=== PATIENT | female | born 1990 | race Caucasian/White ===

== ENCOUNTER 2017-11-24 10:42 | Emergency (ER) | payer BC | END 2017-11-24 16:24 | disposition left against medical advice (07) | LOC: FTE 10:42 | DX: O26.892 Other specified pregnancy related conditions, second trimester (principal); R10.9 Unspecified abdominal pain; Z3A.24 24 weeks gestation of pregnancy | CPT/HCPCS: 99282 ==

== ENCOUNTER 2017-11-24 11:23 | Outpatient (CLI) | payer BC | END 2017-11-24 12:15 | disposition left against medical advice (07) | LOC: OBT 11:23 → L-D 11:23 → OBT 12:15 | DX: O26.899 Other specified pregnancy related conditions, unspecified trimester (principal); M54.5 Low back pain; Z3A.00 Weeks of gestation of pregnancy not specified ==

== ENCOUNTER 2018-02-21 08:40 | Outpatient (CLI) | payer OTHER, BC | END 2018-02-21 10:00 | disposition home or self-care (01) | LOC: OBT 08:40 → L-D 08:40 → OBT 10:00 | DX: O24.419 Gestational diabetes mellitus in pregnancy, unspecified control (principal); O26.893 Other specified pregnancy related conditions, third trimester; M54.9 Dorsalgia, unspecified; Z3A.37 37 weeks gestation of pregnancy | CPT/HCPCS: 76815; 76818 ==

== ENCOUNTER 2018-03-03 10:09 | Outpatient (CLI) | payer OTHER | END 2018-03-03 12:09 | disposition home or self-care (01) | LOC: OBT 10:09 → L-D 10:09 → OBT 12:09 | DX: O24.410 Gestational diabetes mellitus in pregnancy, diet controlled (principal); Z3A.38 38 weeks gestation of pregnancy | CPT/HCPCS: 76818 ==

== ENCOUNTER 2018-03-07 14:13 | Outpatient (CLI) | payer OTHER | END 2018-03-07 15:10 | disposition home or self-care (01) | LOC: OBT 14:13 → L-D 14:15 → OBT 15:10 | DX: O24.410 Gestational diabetes mellitus in pregnancy, diet controlled (principal); Z3A.39 39 weeks gestation of pregnancy | CPT/HCPCS: 76818; 82962 ==

== ENCOUNTER 2018-03-08 15:51 | Outpatient (CLI) | payer OTHER ==
[2018-03-08] MEDS ORDERED: LIDOCAINE 1% (MPF) 30 ML INJ (16:58)
[2018-03-08 17:00] LABS: ADD UMIC NO; UR ASCORBIC ACID NEGATIVE (NEGATIVE); UR BILIRUBIN (Dip) NEGATIVE (NEGATIVE); UR BLOOD (Dip) NEGATIVE (NEGATIVE); UR CLARITY CLEAR (CLEAR); UR COLOR STRAW (YELLOW); UR GLUCOSE (Dip) NEGATIVE (NEGATIVE); UR KETONES (Dip) NEGATIVE (NEGATIVE); UR LEUKOCYTE ESTERASE (Dip) NEGATIVE Leu/ul (NEGATIVE); UR NITRITE (Dip) NEGATIVE (NEGATIVE); UR SPECIFIC GRAVITY (Dip) 1.008 (1.003-1.030); UR TOTAL PROTEIN (Dip) NEGATIVE (NEGATIVE); UR UROBILINOGEN (Dip) NEGATIVE (NEGATIVE)
== END 2018-03-08 17:28 | disposition home or self-care (01) ==
LOC: OBT 15:51 → L-D 15:52 → OBT 17:28
DX: O62.9 Abnormality of forces of labor, unspecified (principal); Z3A.39 39 weeks gestation of pregnancy
CPT/HCPCS: 76815; 76818; 81003; 87086

== ENCOUNTER 2018-03-15 10:16 | Inpatient (IN) | payer OTHER ==
[2018-03-15] MEDS ORDERED: MISOPROSTOL 200 MCG TAB PR (12:00)
[2018-03-15] MEDS ORDERED: IBUPROFEN 600 MG TAB PO (12:00)
[2018-03-15] MEDS ORDERED: CARBOPROST 250 MCG INJ IM (12:00)
[2018-03-15] MEDS ORDERED: BUTORPHANOL 2 MG INJ IV (12:00)
[2018-03-15] MEDS ORDERED: LIDOCAINE 1% (MPF) 30 ML INJ INJ (12:00)
[2018-03-15] MEDS ORDERED: OXYTOCIN 30 UNITS/LR 500 ML IV ×2 (12:00)
[2018-03-15] MEDS ORDERED: METHYLERGONOVINE 0.2 MG INJ IM (12:00)
[2018-03-15 12:44] LABS: ADD MAN DIFF? NO
[2018-03-15 12:48] LABS: BASOPHILS % 0.3 % (0.0-2.0); EOSINOPHILS # 0.1 10^3/ul (0.0-0.5); EOSINOPHILS % 1.7 % (0.0-7.0); HEMATOCRIT 37.6 % (37.0-47.0); HEMOGLOBIN 13.1 g/dl (12.0-16.0); LYMPHOCYTES # 1.4 10^3/ul (0.8-2.9); LYMPHOCYTES % 23.7 % (15.0-51.0); MEAN CORPUSCULAR HGB CONC 34.8 g/dl (32.0-37.0); MEAN CORPUSCULAR VOLUME 89.1 fl (82.0-101.0); MEAN PLATELET VOLUME 11.5 fl (7.4-10.4); MONOCYTE # 0.4 10^3/ul (0.3-0.9); MONOCYTES % 7.3 % (0.0-11.0); NEUTROPHILS % 66.7 % (39.0-77.0); PLATELET COUNT 165 10^3/UL (140-415); RED BLOOD COUNT 4.22 10^6/ul (4.20-5.40)
[2018-03-15 13:21] LABS: INR 0.82; PARTIAL THROMBOPLASTIN TIME 25.6 Sec (23.0-35.0); PROTIME 11.3 Sec (11.9-14.9); PT RATIO 0.9
[2018-03-15] MEDS: OXYTOCIN 30 UNITS/LR 500 ML IV (13:23)
[2018-03-15] MEDS: LACTATED RINGER'S 1,000 ML IV* ×2 (13:23→19:59)
[2018-03-15 15:35] LABS: RAPID PLASMA REAGIN NONREACTIVE (NR)
[2018-03-15] MEDS: DEXTROSE 5%-LR 1,000 ML IV (21:11)
[2018-03-16] MEDS: LACTATED RINGER'S 1,000 ML IV* ×4 (01:09→22:48)
[2018-03-16] MEDS ORDERED: FENTAnyl 2MCG/ML-ROPIV 0.2% 100 ML (03:33)
[2018-03-16] MEDS ORDERED: NALOXONE (0.4 MG/ML) INJ IV (04:00)
[2018-03-16] MEDS: FENTAnyl 2MCG/ML-ROPIV 0.2% 100 ML BAG EPI ×2 (05:15→11:47)
[2018-03-16] MEDS: EPHEDrine SULFATE 50 MG/5 ML SYG IV (05:51)
[2018-03-16] MEDS ORDERED: LIDOCAINE 0.5% (SDV) 50 ML INJ (10:42)
[2018-03-16] MEDS: DEXTROSE 5%-LR 1,000 ML IV (13:43)
[2018-03-16] MEDS: OXYTOCIN 30 UNITS/LR 500 ML IV (17:46)
[2018-03-16] MEDS: MINERAL OIL LIGHT 10 ML VIAL TOP (17:48)
[2018-03-16] MEDS ORDERED: METHYLERGONOVINE 0.2 MG INJ IM (20:30)
[2018-03-16] MEDS ORDERED: MISOPROSTOL 200 MCG TAB PR (20:30)
[2018-03-16] MEDS ORDERED: ZOLPIDEM 5 MG TAB PO (20:30)
[2018-03-16] MEDS ORDERED: OXYTOCIN 30 UNITS/LR 500 ML IV (20:30)
[2018-03-16] MEDS ORDERED: OXYCODONE/ASPIRIN (4.88/325) TAB PO ×2 (20:30)
[2018-03-16] MEDS ORDERED: CARBOPROST 250 MCG INJ IM (20:30)
[2018-03-16] MEDS: SENNA/DOCUSATE NA (8.6MG/50MG) TAB PO (22:47)
[2018-03-16] MEDS: BENZOCAINE 20% 56 ML SPRAY TOP (22:48)
[2018-03-16] MEDS: WITCH HAZEL/GLYCERIN PAD PR (22:48)
[2018-03-16] MEDS: LANOLIN 7 GM TUBE TOP (22:49)
[2018-03-16] MEDS: ACETAMINOPHEN 325 MG TAB PO (23:43)
[2018-03-17] MEDS ORDERED: IBUPROFEN 600 MG TAB PO
[2018-03-17] MEDS: ACETAMINOPHEN 325 MG TAB PO ×3 (05:46→21:02)
[2018-03-17 06:37] LABS: ADD MAN DIFF? NO
[2018-03-17 06:46] LABS: WHITE BLOOD COUNT 8.9 10^3/ul (4.8-10.8)
[2018-03-17 06:46] LABS: BASOPHILS % 0.1 % (0.0-2.0); EOSINOPHILS # 0.2 10^3/ul (0.0-0.5); EOSINOPHILS % 1.8 % (0.0-7.0); HEMATOCRIT 33.3 % (37.0-47.0); HEMOGLOBIN 11.7 g/dl (12.0-16.0); LYMPHOCYTES # 1.9 10^3/ul (0.8-2.9); LYMPHOCYTES % 21.4 % (15.0-51.0); MEAN CORPUSCULAR HEMOGLOBIN 31.1 pg (29.0-33.0); MEAN CORPUSCULAR HGB CONC 35.1 g/dl (32.0-37.0); MEAN CORPUSCULAR VOLUME 88.6 fl (82.0-101.0); MEAN PLATELET VOLUME 11.1 fl (7.4-10.4); MONOCYTE # 0.8 10^3/ul (0.3-0.9); MONOCYTES % 8.8 % (0.0-11.0); NEUTROPHILS % 67.7 % (39.0-77.0); PLATELET COUNT 118 10^3/UL (140-415); RED BLOOD COUNT 3.76 10^6/ul (4.20-5.40); RED CELL DISTRIBUTION WIDTH 12.1 % (11.5-14.5)
[2018-03-17] MEDS: SENNA/DOCUSATE NA (8.6MG/50MG) TAB PO ×2 (09:33→21:01)
[2018-03-17] MEDS: LACTATED RINGER'S 1,000 ML IV* ×2 (11:15→19:59)
[2018-03-18] MEDS: ACETAMINOPHEN 325 MG TAB PO (02:42)
[2018-03-18] MEDS: SENNA/DOCUSATE NA (8.6MG/50MG) TAB PO (09:00)
[2018-03-18] MEDS: DIPHTH/TET/ACEL PERTUSS (ADULT) 0.5 ML VIAL IM* (13:00)
== END 2018-03-18 13:55 | disposition home or self-care (01) | DRG 775 ==
LOC: OBT 10:16 → PP1 03-16 20:18 → L-D 10:16 → OBT 10:38 → L-D 10:38
PROVIDERS: Obstetrics & Gynecology
PROC: 3E033VJ Introduction of Other Hormone into Peripheral Vein, Percutaneous Approach (ICD-10-PCS; 2018-03-15)
PROC: 10E0XZZ Delivery of Products of Conception, External Approach (ICD-10-PCS; principal; 2018-03-16)
PROC: 0W8NXZZ Division of Female Perineum, External Approach (ICD-10-PCS; 2018-03-16)
DX: O48.0 Post-term pregnancy (principal); O24.429 Gestational diabetes mellitus in childbirth, unspecified control; O76 Abnormality in fetal heart rate and rhythm complicating labor and delivery; Z3A.40 40 weeks gestation of pregnancy; Z37.0 Single live birth
CPT/HCPCS: 62319; 82962; 85025; 85610; 85730; 86592; 86900; 86901; 90715